=== PATIENT | female | born 1950 | race Caucasian/White ===

== ENCOUNTER 2018-08-30 08:50 | Emergency (ER) | payer OTHER ==
[~2018-08-30] VITALS: Ht 160 cm; Wt 80.7 kg
[2018-08-30] MEDS ORDERED: SYNTHROID50 MCG (09:21)
[2018-08-30] MEDS ORDERED: PLAQUNIL (09:21)
== END 2018-08-30 20:13 | disposition home or self-care (01) ==
LOC: ER 08:50
DX: K58.9 Irritable bowel syndrome, unspecified (principal); R19.7 Diarrhea, unspecified

== ENCOUNTER 2019-01-13 09:41 | Outpatient (CLI) | payer OTHER ==
[~2019-01-13 09:41] MED LIST: PLAQUNIL; SYNTHROID50 MCG
== END 2019-01-14 14:03 | disposition home or self-care (01) ==
LOC: RAD 09:41
DX: M54.2 Cervicalgia (principal)